=== PATIENT | female | born 2000 | race Caucasian/White ===

== ENCOUNTER 2025-01-16 10:45 | Emergency (ER) | payer OTHER ==
[~2025-01-16] VITALS: Ht 167.6 cm; Wt 127.8 kg
[2025-01-16 14:26] LABS: BASO # 0.1 10^3/uL (0.0-0.2); BASO % 0.5 % (0.0-1.0); EOS # 0.1 10^3/uL (0.0-0.5); EOS % 0.9 % (0.0-3.0); LYMPH # 2.9 10^3/uL (1.5-5.0); LYMPH % 22.2 % (24.0-44.0); MONO # 1.0 10^3/uL (0.0-0.8); MONO % 7.4 % (2.0-8.0); NEUTROPHILS # 8.9 10^3/uL (1.5-8.5); NEUTROPHILS % 68.8 % (36.0-66.0); PLATELET COUNT, AUTOMATED 404 10^3/uL (150-450)
[2025-01-16] MEDS: NS (Normal Saline) 0.9% 1,000 ML IV ONE (14:27)
[2025-01-16] MEDS: dexAMETHasone 4 MG/ML 1 ML VIAL IV ONE (14:27)
[2025-01-16] MEDS: diphenhydrAMINE 50 MG/ML VIAL IV ONE (14:27)
[2025-01-16] MEDS: KETOROLAC 30 MG/ML 1 ML VIAL IV ONE (14:27)
[2025-01-16 14:32] LABS: ERYTHROCYTE SEDIMENTATION RATE 42 mm/hr (0-20)
[2025-01-16 14:48] LABS: HCG, SERUM QUALITATIVE NEGATIVE (NEGATIVE)
[2025-01-16 14:50] LABS: C REACTIVE PROTEIN QUANTITATIV 0.72 MG/DL (<1.0); CALCIUM LEVEL 9.0 MG/DL (8.5-10.1); CARBON DIOXIDE LEVEL 24 MMOL/L (20-31); CHLORIDE LEVEL 106 MMOL/L (98-107); CREATININE FOR GFR 0.60 MG/DL (0.55-1.30); GLOMERULAR FILTRATION RATE > 90.0 (>60); MAGNESIUM LEVEL 2.1 MG/DL (1.8-2.4); POTASSIUM SERUM 4.6 MMOL/L (3.5-5.1); SODIUM LEVEL 142 MMOL/L (136-145)
[2025-01-16] MEDS ORDERED: LEXA1TAB PO (19:17)
[2025-01-16] MEDS ORDERED: ADDE10TA PO (19:17)
[2025-01-16] MEDS ORDERED: HOME MED LIST COMPLETE! XX SCH (19:20)
[2025-01-16 21:41] LABS: APPEARANCE, CSF CLEAR (CLEAR); COLOR, CSF COLORLESS (COLORLESS); CSF TUBE# CELL CNT TUBE 1
[2025-01-16 21:59] LABS: CSF TUBE# TP TUBE 2; TOTAL PROTEIN,CSF 30.1 MG/DL (15-45)
[2025-01-16 22:02] LABS: CSF TUBE# GLU TUBE 2; GLUCOSE CSF 72.0 MG/DL (40-70)
[2025-01-16 22:46] VITALS: BP 126/60; TEMP 98; O2SAT 98
== END 2025-01-16 22:56 | disposition home or self-care (01) ==
LOC: M ED 10:45
DX: R51.9 Headache, unspecified (principal); H53.8 Other visual disturbances; Z86.69 Personal history of other diseases of the nervous system and sense organs; Z88.0 Allergy status to penicillin; Z91.013 Allergy to seafood
CPT/HCPCS: 62272; 70450; 80048; 82945; 83735; 84157; 84703; 85025; 85652; 86140; 87070; 87205; 89050; 96360; 96361; 99285; J1100; J1200; J1885; J2765